=== PATIENT | female | born 1955 | race Caucasian/White ===

== ENCOUNTER → 2025-09-06 10:55 | Outpatient (CLI) | payer MEDICARE, BC, SELFPAY ==
[2025-09-06 11:33] LABS: Add Manual Diff / Slide Review NO; Hematocrit 40.0 % (36-46); Hemoglobin 13.5 g/dL (12.0-16.0); Lymphocytes Absolute Auto 1700 /uL (1100-4500); Mean Corpuscular HGB Conc 33.8 % (30-36); Mean Corpuscular Hemoglobin 30.2 PG (26-34); Mean Corpuscular Volume 89.3 fL (80-100); Platelet Count 333 X10^3/uL (150-400)
== END ==
PROVIDERS: Referring Provider Dentist Oral and Maxillofacial Surgery; Visit Provider Dentist Oral and Maxillofacial Surgery
DX: K12.2 Cellulitis and abscess of mouth (principal)
CPT/HCPCS: 36415; 85025; 85379; 85651